=== PATIENT | female | born 1985 | race Two or more races ===

== ENCOUNTER → 2018-08-11 | Emergency (ER) | payer MEDICAID ==
[~2018-08-11] VITALS: Ht 152.4 cm; Wt 81.6 kg
--- NOTE | 2018-08-11 03:12 | NUR ---
BIBS FOR DEPRESION AND ANXIETY. PT IS ON XANAX 0.5MG TID WHICH SHE DID NOT TAKE IT TODAY. HAS A RECENT FAMILY ISSUES. HAS HX OF BEING ADMITTED TO THE PSYCH UNIT. DENIEED ANY SI OR PLAN.
--- NOTE | 2018-08-11 03:38 | NUR ---
Patient discharged to home in stable condition. pt refused the Rx and the Written and verbal after care instructions. Continuously asking for xanax however pt is going to drive back home. risk vs benefits explained to the pt.
[2018-08-11 04:09] VITALS: BP 141/84
== END | disposition home or self-care (01) ==
LOC: ER 02:54
DX: F41.0 Panic disorder [episodic paroxysmal anxiety] (principal); G47.00 Insomnia, unspecified